=== PATIENT | female | born 1930 | race Caucasian/White ===

== ENCOUNTER 2016-09-08 18:29 | Emergency (ER) | payer MEDICARE ==
--- NOTE | 2016-09-08 19:09 | UC ---
General HPI - History of Current Complaint Chief Complaint: UCGI Stated Complaint: FLU SXS, ELEVATED BS Time Seen by Provider: 09/08/16 19:02 Hx Obtained From: Patient, Family/Traffic Incident Management Manager Onset/Duration: Gradual Onset, Lasting Days - 7, Still Present Timing: Constant Onset Severity: Moderate Current Severity: Moderate Associated Signs & Symptoms: Positive: Diarrhea, Decreased Oral Intake, Weakness - Allergy/Home Medications Allergies/Adverse Reactions: Allergies Allergy/AdvReac Type Severity Reaction Status Date / Time No Known Allergies Allergy Verified 09/13/15 13:28 PMH/Surg Hx/FS Hx/Imm Hx Previously Healthy: No Endocrine History Of: Reports: Diabetes, Thyroid Disease Cardiovascular History Of: Reports: Hypertension - Surgical History Surgical History: Yes Surgery Procedure, Year, and Place: HYTERECTOMY - Family History Known Family History: Positive: None - Social History Occupation: Retired Lives: Alone Alcohol Use: None Substance Use Type: None Smoking Status (MU): Never Smoked Tobacco - Immunization History Most Recent Influenza Vaccination: [id number] Review of Systems Constitutional: Fatigue Skin: Negative Eyes: Negative ENT: Negative Respiratory: Cough Cardiovascular: Negative Gastrointestinal: Diarrhea Genitourinary: Negative Motor: Weakness Neurovascular: Negative Musculoskeletal: Negative Neurological: Negative Psychological: Negative All Other Systems Reviewed And Are Negative: Yes Physical Exam Triage Information Reviewed: Yes Appearance: No Pain Distress, Well-Nourished, Ill-Appearing - mild, pale Vital Signs Reviewed: Yes Eye Exam: Normal Eyes: Positive: Other: - pale ENT Exam: Normal ENT: Positive: Normal ENT inspection, Hearing grossly normal, Pharynx normal, TMs normal. Negative: Nasal congestion, Nasal drainage, Tonsillar swelling, Tonsillar exudate, Trismus, Muffled/hoarse voice Dental Exam: Normal Neck exam: Normal Neck: Positive: Supple, Nontender, No Lymphadenopathy Respiratory Exam: Normal Respiratory: Positive: Chest non-tender, Lungs clear, Normal breath sounds, No respiratory distress, No accessory muscle use Cardiovascular Exam: Other Cardiovascular: Positive: No Murmur, Pulses Normal, Brisk Capillary Refill, Tachycardia Abdominal Exam: Normal Abdomen Description: Positive: Nontender, No Organomegaly, Soft Bowel Sounds: Positive: Present Musculoskeletal Exam: Normal Musculoskeletal: Positive: Strength Intact, ROM Intact, No Edema Neurological Exam: Normal Neurological: Positive: Alert, Muscle Tone Normal, Fatigued Psychological Exam: Normal Psychological: Positive: Normal Response To Family Skin Exam: Normal Diagnostics - Laboratory Diagnostic Studies Completed/Ordered: ua positive nitrites, leuks - EKG Cardiac Rate: Tachycardia Cardiac Rhythm: Sinus: Normal - non specific boarderline st seg changes in inferior leads Ectopy: None ST Segment: Non-Specific Course/Dx - Course Course Of Treatment: bactrim, follow with pcp in next 2-3 days increase fluids, to ed for change or worsening of any symptom or complaint - Differential Dx - Multi-Symptom Differential Diagnoses: Cardiac Ischemia, CVA, Metabolic Abnormality, Urinary Tract Infection Provider Diagnoses: UTI Discharge - Discharge Plan Condition: Stable Disposition: HOME Prescriptions: Sulfamethox/Trimethoprim DS* [Bactrim DS 800/160 TAB*] 1 tab PO BID #9 tab Patient Education Materials: Sulfamethoxazole/Trimethoprim (By mouth), Urinary Tract Infection in Women (ED) Referrals: Efrem Schumacher PA [Primary Care Provider] - 2 Days
[2016-09-08 19:13] VITALS: BP 137/62
[2016-09-08] MEDS ORDERED: Sulfamethox/Trimethoprim DS 800/160* TAB PO ONE (20:07)
== END 2016-09-08 20:23 | disposition home or self-care (01) ==
LOC: UCCORT 18:29
DX: N39.0 Urinary tract infection, site not specified (principal); E11.9 Type 2 diabetes mellitus without complications
CPT/HCPCS: 87077; 87086; 87186; 87502; 93005; 99212; A9270-GY; G0463